=== PATIENT | male | born 1945 | race Caucasian/White ===

== ENCOUNTER 2019-07-17 05:41 | Day surgery (SDC) | payer MEDICARE, OTHER ==
[2019-07-17] VITALS (7 sets, daily range): BP systolic 162–171; BP diastolic 65–96; PULSE 64–88; TEMP 97.3–97.5
[~2019-07-17] VITALS: Ht 182.9 cm; Wt 93.8 kg
[2019-07-17] MEDS ORDERED: COUMADIN 2MG2 MG/TAB PO (06:02)
[2019-07-17] MEDS ORDERED: SYNTHROID 0.0.025 MG PO (06:02)
[2019-07-17] MEDS ORDERED: ISOPTIN SR240 MG PO (06:02)
[2019-07-17] MEDS ORDERED: TOVIAZ8 MG PO (06:03)
[2019-07-17] MEDS ORDERED: ZYLOPRIM 300MG300 MG PO (06:03)
[2019-07-17] MEDS ORDERED: CARDURA4 MG PO (06:04)
[2019-07-17] MEDS ORDERED: ELIQUIS 5MG PO (06:05)
--- NOTE | 2019-07-17 08:28 | NUR ---
Pt arrived back to [facility] from [place] via cart with [employer]. Report given to LIZZIE Lazcano. Upon arrival, pt's VSS, BP elevated, but per his chart, pt's baseline BP is elevated. Pt denies pain or nausea at this time. Water brought per pt's request. at bedside, call light within reach. Reviewed with patient the expected course of recovery to discharge. No further concerns/questions at this time.
--- NOTE | 2019-07-17 08:30 | NUR ---
Pt sitting comfortably in bed with HOB up. No c/o nausea pain. Drinking water with no problems.
--- NOTE | 2019-07-17 08:45 | NUR ---
Pt sitting comfortably in bed. at bedside. VSS, BP still elevated. No c/o pain or nausea at this time.
--- NOTE | 2019-07-17 09:00 | NUR ---
The patient appears to be tolerating his water well and was given some vanilla pudding to try at this time. Vital signs appear stable. The nurse informed the patient that if he tolerates the pudding well she will give him a PRN dose of pain medication prior to ambulating to the bathroom.
--- NOTE | 2019-07-17 09:30 | NUR ---
The patient was given a PRN dose of [place] two tabs at this time for pain control. The patient's vital signs appear stable. The patient ambulated to the bathroom with the stand by assistance of one nurse and appeared to tolerate the activity well. The patient voided without difficulty and voices a desire to be discharged home.
--- NOTE | 2019-07-17 10:00 | NUR ---
The patient has finished dressing and is ready to review his discharge instructions. Discharge instructions were reviewed with the patient and his at this time. They both verbalized understanding and have no questions for the nurse at this time. The patient's IV to his right hand was removed and a pressure dressing was applied to the site.
--- NOTE | 2019-07-17 10:10 | NUR ---
The patient was escorted out via wheelchair to a private vehicle by LIZZIE Hou. The patient's belongings and discharge paperwork were sent with him. The patient's is present to drive him home.
== END 2019-07-17 10:10 | disposition home or self-care (01) ==
LOC: SDCO 05:41
DX: M94.261 Chondromalacia, right knee (principal); M79.4 Hypertrophy of (infrapatellar) fat pad; M23.321 Other meniscus derangements, posterior horn of medial meniscus, right knee; M17.11 Unilateral primary osteoarthritis, right knee; Z79.899 Other long term (current) drug therapy; Z86.718 Personal history of other venous thrombosis and embolism; Z79.01 Long term (current) use of anticoagulants; M10.9 Gout, unspecified
CPT/HCPCS: 29877; G0289; J0690; J1100; J1885; J2405; J2704; J3010; J7120